=== PATIENT | female | born 1985 | race American Indian/Alaskan Native ===

== ENCOUNTER 2016-11-28 13:45 | Emergency (ER) | payer BC ==
[2016-11-28] MEDS ORDERED: Albuterol-Ipratrop 3 mg / 0.5 (3 ml) UD IH STA (14:24)
[2016-11-28] MEDS ORDERED: Albuterol 0.083% Inhal Sol (2.5 mg/3 mL) UD ONE (14:29)
--- NOTE | 2016-11-28 14:59 | C.PDOC ---
History Of Present Illness 31 year old female, with history of seasonal allergies, presents to the ED for evaluation of productive cough which began 1 week ago. Patient reports her cough was initially productive of clear sputum, but has worsened and progressed to production of yellow sputum over the past 4 days. Patient reports her "breathing feels constricted." Patient took 40mg and 30mg of Prednisone yesterday and today, respectively. Patient has also been taking Albuterol with transient relief. She denies fever, chills, chest pain. Time Seen by Provider: 11/28/16 14:06 Chief Complaint (Nursing): Shortness Of Breath History Per: Patient History/Exam Limitations: no limitations Onset/Duration Of Symptoms: Days (1 week ) Current Symptoms Are (Timing): Worse Current Respiratory Medications: Albuterol, Prednisone Associated Symptoms: Productive Cough. denies: Fever, Chills Additional History Per: Patient Past Medical History Reviewed: Historical Data, Nursing Documentation, Vital Signs Vital Signs: Last Vital Signs Temp 98 F 11/28/16 13:52 Pulse 106 H 11/28/16 15:01 Resp 22 11/28/16 15:01 BP 125/88 11/28/16 15:01 Pulse Ox 99 11/28/16 15:07 - Medical History PMH: Anemia, Gastritis, Hyperlipidemia Comment Only: Asthma (seasonal allergy) Surgical History: No Surg Hx - [facility] Procedures INJECT/INFUSE NEC (02/10/14) Family History: States: Unknown Family Hx - Social History Hx Tobacco Use: No Hx Alcohol Use: No Hx Substance Use: No - Immunization History Hx Tetanus Toxoid Vaccination: Yes Hx Influenza Vaccination: No Hx Pneumococcal Vaccination: No Review Of Systems Constitutional: Negative for: Fever, Chills Physical Exam - Physical Exam Additional Physical Exam Comments: Constitutional: No acute distress. Head: Normocephalic. Atraumatic. Eyes: PERRL. ENT: Moist mucous membranes. Neck: Supple. Cardiovascular: Regular rate. Radial pulse 2+ bilaterally. Chest: No tenderness. Respiratory: Diffuse wheezing. GI: Soft. Nontender. Nondistended. Back: No CVA tenderness. Musculoskeletal: No tenderness or swelling of extremities. Skin: No rash. Neurologic: Alert, no focal deficit. ED Course And Treatment O2 Sat by Pulse Oximetry: 99 Medical Decision Making Medical Decision Making: Impression: 31 y/o female with cough Plan: * CXR * Albuterol INH * Toradol IM * reassess and disposition Progress: CXR ordered and reviewed. Albuterol INH and Toradol IM administered. Disposition - Disposition Disposition: HOME/ ROUTINE Disposition Time: 16:02 Condition: STABLE Prescriptions: Azithromycin [Zithromax] 2 tab PO DAILY #6 tab Instructions: Upper Respiratory Infection (ED), Asthma (ED) Forms: [employer] (Tamazight) - Clinical Impression Clinical Impression: URI (upper respiratory infection), Asthma exacerbation - Scribe Statement The provider has reviewed the documentation as recorded by the Scribe (Jaclyn Ta) Provider Attestation: All medical record entries made by the Scribe were at my direction and personally dictated by me. I have reviewed the chart and agree that the record accurately reflects my personal performance of the history, physical exam, medical decision making, and the department course for this patient. I have also personally directed, reviewed, and agree with the discharge instructions and disposition.
[2016-11-28 15:01] VITALS: BP 125/88; PULSE 106; RESP 22
[2016-11-28 15:02] VITALS: O2SAT 99
[2016-11-28 16:13] VITALS: TEMP 98.4
--- NOTE | 2016-11-28 16:19 | RAD ---
HISTORY: cough COMPARISON: No prior. TECHNIQUE: Chest PA and lateral FINDINGS: LUNGS: Poor inspiration with low lung volumes, mild crowded bronchovascular markings and mild bibasilar atelectasis. PLEURA: No significant pleural effusion identified. No pneumothorax apparent. CARDIOVASCULAR: Normal. OSSEOUS STRUCTURES: No significant abnormalities. VISUALIZED UPPER ABDOMEN: Normal. OTHER FINDINGS: None. IMPRESSION: Poor inspiration with low lung volumes, mild crowded bronchovascular markings and mild bibasilar atelectasis.
== END 2016-11-28 16:13 | disposition home or self-care (01) ==
LOC: C.ER 13:45
DX: J06.9 Acute upper respiratory infection, unspecified (principal); J45.901 Unspecified asthma with (acute) exacerbation
CPT/HCPCS: 71020; 96372; 99284; J1885

== ENCOUNTER 2017-06-07 11:48 | Emergency (ER) | payer BC ==
[2017-06-07 11:48] VITALS: BMI 45.1
--- NOTE | 2017-06-07 12:39 | C.PDOC ---
History Of Present Illness 31 Y/O FEMALE PRESENTS TO ED WITH C/O RLQ PAIN SINCE 0700. SUDDEN ONSET WHILE ON TOILET SHARP RLQ W OCC RADIATION RIGHT FLANK. PATIENT STATES SHE CRAWLED TO BED AND PASSED OUT IN BED AWOKE @ 1000 WITH PERSISTENT SYMPTOMS. SYMPTOMS IMPROVE IF LAYS ON L SIDE AND ADMITS TO NAUSEA NO FEVER. PSH NEG/ LMP 1 WEEK. HO PRIOR PYELO EXAM MOD DIST NONTOXIC ABD +RLQ TEND OBESE SOFT NO R/G REMAINDER NEG MDM APPY VS TORSION VS CYST VS RENAL COLIC RO ECTOPIC Time Seen by Provider: 06/07/17 12:16 Chief Complaint (Nursing): Abdominal Pain History Per: Patient History/Exam Limitations: no limitations Onset/Duration Of Symptoms: Days Current Symptoms Are (Timing): Still Present Location Of Pain/Discomfort: RLQ Radiation Of Pain To:: Flank Quality Of Discomfort: Sharp Past Medical History Reviewed: Historical Data, Nursing Documentation, Vital Signs Vital Signs: Last Vital Signs Temp 98.1 F 06/07/17 15:54 Pulse 92 H 06/07/17 15:54 Resp 18 06/07/17 15:54 BP 129/85 06/07/17 15:54 Pulse Ox 100 06/07/17 15:54 - Medical History PMH: Anemia, Gastritis, Hyperlipidemia Comment Only: Asthma (seasonal allergy) Surgical History: No Surg Hx - [facility] Procedures INJECT/INFUSE NEC (02/10/14) Family History: States: No Known Family Hx - Social History Hx Tobacco Use: No Hx Alcohol Use: No Hx Substance Use: No - Immunization History Hx Tetanus Toxoid Vaccination: Yes Hx Influenza Vaccination: No Hx Pneumococcal Vaccination: No Review Of Systems Constitutional: Negative for: Fever, Chills Gastrointestinal: Positive for: Nausea, Abdominal Pain. Negative for: Vomiting , Diarrhea Physical Exam - Physical Exam Appears: Non-toxic, Other (In moderate distress) Skin: Warm, Dry, No Rash Head: Atraumatic, Normacephalic Oral Mucosa: Moist Neck: Normal ROM, Supple Cardiovascular: Rhythm Regular Respiratory: Normal Breath Sounds, No Rales, No Rhonchi, No Wheezing Gastrointestinal/Abdominal: Soft, Tenderness (RLQ), No Guarding, No Rebound Back: No CVA Tenderness Extremity: Normal ROM, Capillary Refill (<2 seconds) Neurological/Psych: Oriented x3, Normal Speech, Normal Cognition ED Course And Treatment - Laboratory Results Result Diagrams: 06/07/17 13:07 06/07/17 13:07 O2 Sat by Pulse Oximetry: 96 (RA) Pulse Ox Interpretation: Normal Progress - Re-Evaluation Re-evaluation Note: 06/07/17 15:49 STILL CO RESIDUAL ABD PAIN. NO S/S ACUTE ABD VSS. CT, US REPORTS REVIEWED. PAIN RX, REEVAL 06/07/17 16:53 IMPROVED MOBILITY WILL DC - Data Reviewed Data Reviewed: Lab, Diagnostic imaging, Old records Medical Decision Making Medical Decision Making: Impression: APPY VS TORSION VS CYST VS RENAL COLIC RO ECTOPIC Disposition Counseled Patient/Family Regarding: Studies Performed, Diagnosis, Need For Followup, Rx Given - Disposition Referrals: YOUR,OBGYN [Other] Disposition: HOME/ ROUTINE Disposition Time: 16:53 Condition: IMPROVED Prescriptions: Ibuprofen [Motrin] 600 mg PO Q6 #30 tab Ondansetron [Zofran Odt] 4 mg PO TID PRN #9 odt PRN Reason: Nausea/Vomiting oxyCODONE/Acetaminophen [Percocet 5/325 mg Tab] 1 ea PO QID #8 tab Instructions: Acute Pelvic Pain (DC) Forms: [employer] (Yakut), Work Excuse - Clinical Impression Clinical Impression: Bilateral dermoid cysts of ovaries, Abdominal pain - Scribe Statement The provider has reviewed the documentation as recorded by the Kimberibtiffanie Devine All medical record entries made by the Kimberibtiffanie were at my direction and personally dictated by me. I have reviewed the chart and agree that the record accurately reflects my personal performance of the history, physical exam, medical decision making, and the department course for this patient. I have also personally directed, reviewed, and agree with the discharge instructions and disposition.
[2017-06-07] MEDS ORDERED: SODIUM CHLORIDE 0.9% IV STA (12:40)
[2017-06-07] MEDS ORDERED: Sodium Chloride 0.9% 1,000 ML IV STA (12:40)
[2017-06-07] MEDS ORDERED: LIDOCAINE IV STA (12:40)
[2017-06-07 12:49] LABS: SQUAMOUS EPITHIAL 2 /hpf (0-5); URINE BACTERIA RARE (<OCC); URINE BILIRUBIN NEGATIVE (NEGATIVE); URINE BLOOD NEGATIVE (NEGATIVE); URINE CLARITY Clear (Clear); URINE COLOR Red (YELLOW); URINE GLUCOSE (UA) NORMAL (Normal); URINE LEUKOCYTE ESTERASE TRACE Leu/uL (Negative); URINE PROTEIN NEGATIVE (NEGATIVE); URINE UROBILINOGEN NORMAL mg/dL (0.2-1.0)
[2017-06-07] MEDS ORDERED: Sodium Chloride 0.9% 1,000 ML ONE (13:07)
[2017-06-07 13:15] LABS: BASO # 0.1 K/uL (0.0-0.2); BASO % 0.7 % (0.0-2.0); EOS # 0.1 K/uL (0.0-0.7); EOS % 0.4 % (0.0-4.0); HEMOGLOBIN 11.8 g/dL (11.0-16.0); LYMPH # 2.4 K/uL (1.0-4.3); MEAN CELL VOLUME 81.7 fL (81.0-99.0); MEAN CORPUSCULAR HEMOGLOBIN 27.2 pg (27.0-31.0); MEAN CORPUSCULAR HGB CONC 33.3 g/dL (33.0-37.0); MEAN PLATELET VOLUME 9.3 fL (7.2-11.7); MONO # 0.8 K/uL (0.0-0.8); MONO % 5.5 % (0.0-10.0); NEUT # 10.8 K/uL (1.8-7.0); NEUT % 76.4 % (50.0-75.0); NRBC % 0.1 % (0.0-2.0); RBC 4.35 Mil/uL (3.80-5.20); RED CELL DISTRIBUTION WIDTH 15.8 % (11.5-14.5); WHITE BLOOD COUNT 14.1 K/uL (4.8-10.8)
[2017-06-07 13:28] LABS: ALBUMIN 4.2 g/dL (3.5-5.0); ALT/SGPT 17 U/L (9-52); AST/SGOT 21 U/L (14-36); BLOOD UREA NITROGEN 13 mg/dL (7-17); CALCIUM 9.3 mg/dl (8.6-10.4); GFR AFRICAN-AMERICAN > 60; GFR NON-AFRICAN AMERICAN > 60; LIPASE 60 U/L (23-300)
[2017-06-07] MEDS ORDERED: Iohexol 240 (50 ml) IVP ONE (14:00)
[2017-06-07] MEDS ORDERED: Iohexol 240 (50 ml) ONE (14:13)
--- NOTE | 2017-06-07 15:28 | US ---
HISTORY: Right-sided pelvic pain. Menstrual status: LMP 05/30/2017. COMPARISON: June 07, 2017. CT abdomen and pelvis TECHNIQUE: Transabdominal only. Real-time technique with 2D, duplex and color Doppler. Patient refused the transvaginal component FINDINGS: UTERUS: Measures 3.8 x 4 x 8.9 cm. Normal in size and appearance. No fibroid or other mass lesion seen. ENDOMETRIUM: Measures 9.7 mm in diameter. No ultrasound findings to suggest gestational sac, fluid, debris, mass or polyp or other pathologic process within the endometrium. CERVIX: No cervical abnormality identified. Closed cervix 2.3 cm. RIGHT OVARY: Measures 6.3 x 7.9 x 9.1 cm. Solid mass 5.4 x 6 x 6.3 cm. The overall appearance and feeding comparison with recent CT scan indicates right adnexal dermoid Normal flow. LEFT OVARY: Measures 3.7 x 4.1 x 5.9 cm. Solid mass 3.1 x 4 x 5.1 cm. The overall appearance viewed in conjunction with the concurrent CT scan indicative of left adnexal dermoid. Normal flow. FREE FLUID: No significant free fluid noted. OTHER FINDINGS: None. IMPRESSION: Unremarkable uterus and endometrial echo complex. Bilateral adnexal masses with both CT and ultrasound characteristics that dermoids.
--- NOTE | 2017-06-07 15:38 | CT ---
PROCEDURE: CT Abdomen and Pelvis without intravenous contrast HISTORY: abd pain RLQ RO APPY VS STONE COMPARISON: None. TECHNIQUE: Without contrast.. Contrast Dose: 0 Radiation dose: Total exam DLP = Total exam DLP = 1174.44 mGy-cm. This CT exam was performed using one or more of the following dose reduction techniques: Automated exposure control, adjustment of the mA and/or kV according to patient size, and/or use of iterative reconstruction technique. FINDINGS: LOWER THORAX: Unremarkable. LIVER: Unremarkable. No gross lesion or ductal dilatation. GALLBLADDER AND BILE DUCTS: Unremarkable. PANCREAS: Unremarkable. No gross lesion or ductal dilatation. SPLEEN: Unremarkable. ADRENALS: Unremarkable. No mass. KIDNEYS AND URETERS: 4 mm nonobstructing right lower pole renal calculus. No left renal calculus. No hydronephrosis. No renal mass. VASCULATURE: Unremarkable. No aortic aneurysm. BOWEL: Mild sigmoid diverticulosis. No evidence of diverticulitis. No bowel obstruction. No other abnormal bowel loops. APPENDIX: Unremarkable. Normal appendix. PERITONEUM: Unremarkable. No free fluid. No free air. LYMPH NODES: No retroperitoneal or pelvic lymphadenopathy. There are numerous shotty subcentimeter lymph nodes in the small bowel mesenteric and medial to the cecum. This reflects nonspecific mesenteric adenitis. BLADDER: Poorly distended. Grossly unremarkable. REPRODUCTIVE: Normal uterus. Multiple bilateral ovarian dermoid tumors. On the right side, there are dermoid tumors measuring 5.1 cm, 1.3 cm and 2.5 cm. On the left side, there are dermoid tumors measuring 2.5 cm and 2.0 cm. All of these masses demonstrate attenuation consistent with fatty tissue. There is nodular calcifications seen in association with several of these masses. BONES: No acute fracture. OTHER FINDINGS: None. IMPRESSION: Multiple bilateral ovarian dermoid tumors, largest 5.1 cm. In the appropriate clinical circumstance, the possibility of ovarian torsion should be considered. However, there is no other evidence to suggest ovarian torsion. Findings consistent with nonspecific mesenteric adenitis. 4 mm nonobstructing right renal calculus. No other significant abnormality.
[2017-06-07] MEDS ORDERED: Oxycodone/Acetaminophen 5/325 mg Tab PO STA (15:46)
[2017-06-07] MEDS ORDERED: Oxycodone/Acetaminophen 5/325 mg Tab ONE (15:52)
[2017-06-07 15:56] VITALS: BP 129/85; PULSE 92; RESP 18; TEMP 98.1
[2017-06-07 16:55] VITALS: O2SAT 96
== END 2017-06-07 17:05 | disposition home or self-care (01) ==
LOC: C.ER 11:48
DX: D27.1 Benign neoplasm of left ovary (principal); D27.0 Benign neoplasm of right ovary; R10.31 Right lower quadrant pain
CPT/HCPCS: 74176; 76856; 80053; 81001; 83690; 85025; 96361; 96374; 96375; 99285; J1885; J2001; J7040; Q9966

== ENCOUNTER 2017-06-14 12:17 | Inpatient (IN) | payer BC ==
[2017-06-13 10:22] VITALS: BMI 46.7
[2017-06-14] MEDS ORDERED: Propofol 10 mg/ml Inj (20 ML) ONE (13:52)
[2017-06-14] MEDS ORDERED: Midazolam 2 MG/2 ML VIAL ONE (13:52)
[2017-06-14] MEDS ORDERED: Rocuronium 10 mg/ml (5 ml) ONE (14:08)
[2017-06-14] MEDS ORDERED: Albuterol HFA 90 mcg/actuation (8 g) ONE (14:12)
[2017-06-14] MEDS ORDERED: Clindamycin 600mg/50ml NS 600 MG/50 ML BAG IVPB ONE (14:16)
[2017-06-14] MEDS ORDERED: ePHEDrine 50 mg/ml Inj ONE (15:10)
[2017-06-14] MEDS ORDERED: Clindamycin 600mg/50ml D5W 600 MG/50 ML VIAL IVPB ONE (15:24)
[2017-06-14] MEDS ORDERED: Oxycodone/Acetaminophen 5/325 mg Tab PO PRN ×2 (15:24)
[2017-06-14] MEDS ORDERED: Neostigmine Methylsulfate 3mg/3ml Syringe IV ONE (15:30)
[2017-06-14] MEDS ORDERED: Lactated Ringer's 1,000 ML IV SCH (15:30)
[2017-06-14] MEDS: HYDROmorphone 0.5 mg/0.5 ml ISec IVP PRN ×5 (15:38→22:48)
--- NOTE | 2017-06-14 15:50 | PCM.OP ---
Operative Report - Operative Report Date of Surgery/Procedure: 06/14/17 Time of Surgery/Procedure: 14:25 Surgeon: Dr. Kris White Web Support Engineer: Dr. Garnett Anesthesia/Sedation: General, Endo Pre-Operative Diagnosis: Bilateral Ovarian Cysts Post-Operative Diagnosis: Same, Dermoids Indication for Surgery: Ovarian Cysts Operative Findings: Right Ovarian Cyst, 9cm. Left Ovarian Cyst, 6cm Procedure/Operation Description: Explore Laparotomy, Bilateral Oophocystectomies Estimated Blood Loss: 50 ml Complications: None Discharge & Condition: Satisfactory
[2017-06-14] MEDS: Albuterol 0.083% Inhal Sol (2.5 mg/3 mL) UD INH PRN (15:53)
[2017-06-14 18:46] VITALS: RESP 20
[2017-06-14 19:36] LABS: MEAN CELL VOLUME 81.7 fL (81.0-99.0); MEAN CORPUSCULAR HEMOGLOBIN 27.1 pg (27.0-31.0); MEAN CORPUSCULAR HGB CONC 33.2 g/dL (33.0-37.0); MEAN PLATELET VOLUME 8.9 fL (7.2-11.7); RBC 4.41 Mil/uL (3.80-5.20); RED CELL DISTRIBUTION WIDTH 15.8 % (11.5-14.5)
[2017-06-14 19:49] LABS: WHITE BLOOD COUNT 18.8 K/uL (4.8-10.8)
[2017-06-14] MEDS: Oxycodone/Acetaminophen 5/325 mg Tab PO PRN (20:44)
[2017-06-14] MEDS ORDERED: HYDROmorphone 0.5 mg/0.5 ml ISec ONE (22:42)
[2017-06-14] MEDS ORDERED: Clindamycin 600mg/50ml D5W 600 MG/50 ML VIAL IVPB SCH (23:00)
[2017-06-15] MEDS: Clindamycin 600mg/50ml NS 600 MG/50 ML BAG IVPB SCH ×2 (00:30→08:31)
[2017-06-15] MEDS ORDERED: HYDROmorphone 0.5 mg/0.5 ml ISec ONE ×2 (02:49→07:06)
[2017-06-15] MEDS: HYDROmorphone 0.5 mg/0.5 ml ISec IVP PRN ×4 (02:50→22:58)
[2017-06-15] MEDS: Pantoprazole 40 mg EC Tab PO SCH (09:33)
[2017-06-15] MEDS: Simethicone 80 mg Chewtab PO SCH ×4 (09:34→21:40)
[2017-06-15] MEDS: Oxycodone/Acetaminophen 5/325 mg Tab PO PRN ×2 (12:49→21:36)
[2017-06-15] MEDS: Magnesium Hydroxide Susp 30 ml UD PO PRN (14:06)
[2017-06-16] MEDS: Pantoprazole 40 mg EC Tab PO SCH (10:21)
[2017-06-16] MEDS: Magnesium Hydroxide Susp 30 ml UD PO PRN (10:25)
[2017-06-16] MEDS: Simethicone 80 mg Chewtab PO SCH ×4 (10:28→22:45)
--- NOTE | 2017-06-16 11:56 | CP.PCM.PN ---
Subjective - Date & Time of Evaluation Date of Evaluation: 06/16/17 Time of Evaluation: 11:00 - Subjective Subjective: POD #2 C/O Lower abdominal pain. No BM Wound Clean Sl menstrual bleeding P: Dulcolax Supp Clear liquid diet Home in AM if stable Objective - Vital Signs/Intake and Output Vital Signs (last 24 hours): Temp Pulse Resp BP Pulse Ox 98.7 F 98 H 20 113/75 98 06/16/17 08:00 06/16/17 08:00 06/16/17 08:00 06/16/17 08:00 06/16/17 08:00 - Medications Medications: Current Medications Albuterol Sulfate (Albuterol 0.083% Inhal [place] (2.5 Mg/3 Ml) Ud) 2.5 mg INH RQ6 PRN PRN Reason: Cough and congestion Last Admin: 06/14/17 15:53 Dose: 2.5 mg Diphenhydramine HCl (Benadryl) 25 mg PO Q6 PRN Last Admin: 06/15/17 11:24 Dose: 25 mg Hydromorphone HCl (Dilaudid) 0.5 mg IVP Q4H PRN PRN Reason: severe pain Last Admin: 06/15/17 22:58 Dose: 0.5 mg Lactated Ringer's (Lactated Ringer's) 1,000 mls @ 125 mls/hr IV .Q8H [facility] Last Admin: 06/14/17 17:30 Dose: 0 mls Magnesium Hydroxide (Milk Of Magnesia) 30 ml PO BID PRN PRN Reason: Constipation Last Admin: 06/16/17 10:25 Dose: 30 ml Montelukast Sodium (Singulair) 10 mg PO HS [facility] Last Admin: 06/14/17 22:48 Dose: 10 mg Ondansetron HCl (Zofran Inj) 4 mg IVP ONCE PRN PRN Reason: Nausea/Vomiting Oxycodone/Acetaminophen (Percocet 5/325 Mg Tab) 1 tab PO Q4H PRN PRN Reason: Pain, moderate (4-7) Stop: 06/17/17 15:25 Last Admin: 06/14/17 18:05 Dose: 1 tab Oxycodone/Acetaminophen (Percocet 5/325 Mg Tab) 1 tab PO Q4 PRN PRN Reason: Pain, moderate (4-7) Stop: 06/17/17 15:25 Oxycodone/Acetaminophen (Percocet 5/325 Mg Tab) 2 tab PO Q4H PRN PRN Reason: Pain, severe (8-10) Stop: 06/17/17 19:40 Last Admin: 06/15/17 21:36 Dose: 2 tab Pantoprazole Sodium (Protonix Ec Tab) 40 mg PO DAILY [facility] Last Admin: 06/16/17 10:21 Dose: 40 mg Simethicone (Mylicon Chew Tab) 160 mg PO QID [facility] Last Admin: 06/16/17 10:28 Dose: 160 mg - Labs Labs: 06/14/17 19:30
[2017-06-16] MEDS: Hydrocodone/Acetaminophen 5 mg /300 mg Tab PO PRN ×2 (13:54→18:17)
[2017-06-16] MEDS: Albuterol 0.083% Inhal Sol (2.5 mg/3 mL) UD INH PRN (18:30)
[2017-06-17] MEDS ORDERED: HYDROmorphone 0.5 mg/0.5 ml ISec ONE (00:05)
[2017-06-17] MEDS: HYDROmorphone 0.5 mg/0.5 ml ISec IVP PRN (00:19)
[2017-06-17] MEDS: Hydrocodone/Acetaminophen 5 mg /300 mg Tab PO PRN (07:41)
[2017-06-17] MEDS: Albuterol 0.083% Inhal Sol (2.5 mg/3 mL) UD INH PRN (08:19)
[2017-06-17 08:40] VITALS: BP 133/90; PULSE 107; TEMP 97.1; O2SAT 99
[2017-06-17] MEDS: Magnesium Hydroxide Susp 30 ml UD PO PRN (10:52)
[2017-06-17] MEDS: Pantoprazole 40 mg EC Tab PO SCH (10:52)
[2017-06-17] MEDS: Simethicone 80 mg Chewtab PO SCH (10:56)
--- NOTE | 2017-06-23 06:28 | OP ---
PROCEDURE DATE: 06/14/2017 NATURE OF OPERATION: Exploratory laparotomy and bilateral oophorocystectomy. ATTENDING SURGEON: Mamadou White MD OPERATING SURGEON: Mamadou White MD PAPER TESTING SUPERVISOR: Dr. Garnett. TYPE OF ANESTHESIA: General. BARREL LINER: Dr. Desir. PREOPERATIVE DIAGNOSIS: Bilateral ovarian cyst. POSTOPERATIVE DIAGNOSES: Bilateral ovarian cyst, dermoid cyst. ESTIMATED BLOOD LOSS: 50 mL. PROCEDURE: The patient was placed in supine position. The abdomen was prepped and draped for a midline incision. A vertical midline incision was made between the symphysis pubis and the umbilicus and was carried down to rectus fascia. The fascia was cleaned and incised the length of the incision. The recti were retracted laterally. The transversalis fascia identified and mobilized superiorly. The peritoneum was then incised the length of the incision. There was a large 9 cm right ovarian cyst noted. The right ovarian cyst was dissected and bluntly lysis of the adhesion was done. The incision was made near the normal ovary and the cyst was cut. The edge of the ovary and the dermoid cyst was noticed, and the edge of the ovary was grasped with the Allis clamps and sutured continuous interlocking with the 0 chromic. The same procedure was done on the left ovarian cyst, also was a dermoid cyst. After hemostasis has been obtained, the pelvic cavity was cleaned. Cavity was washed with normal saline and hemostasis was satisfactory. After placing the Interceed on the ovarian incisions, the closure was started. Lap and sponge count were reported as correct. The abdomen was closed in layers. Peritoneum continuous suture of chromic #0 catgut on an atraumatic needle, fascia running interlocking sutures of 0 Vicryl, and subcutaneous tissue was closed in two layers of #2-0 plain catgut and the skin was closed with the tiki. The patient tolerated the procedure well and sent to the recovery room in satisfactory condition. Mamadou White MD
== END 2017-06-17 14:00 | disposition home or self-care (01) | DRG 738 ==
LOC: C.OPSURG 12:17 → C.SDS 12:17 → C.9S 15:29 → C.4M 17:30
PROVIDERS: ADMIT Obstetrics & Gynecology Gynecology; ATTEND Obstetrics & Gynecology Gynecology
PROC: 0UB20ZZ Excision of Bilateral Ovaries, Open Approach (ICD-10-PCS; principal; 2017-06-14 13:30)
DX: D39.12 Neoplasm of uncertain behavior of left ovary (principal); D39.11 Neoplasm of uncertain behavior of right ovary; N83.12 Corpus luteum cyst of left ovary

== ENCOUNTER 2017-09-12 11:00 | Emergency (ER) | payer BC ==
[2017-09-12 11:00] VITALS: BMI 46.7
[2017-09-12 11:10] VITALS: RESP 18; TEMP 98.9
[2017-09-12 12:01] LABS: HCG,QUALITATIVE URINE NEGATIVE (NEGATIVE); SQUAMOUS EPITHIAL 3 /hpf (0-5); URINE BILIRUBIN NEGATIVE (NEGATIVE); URINE BLOOD NEGATIVE (NEGATIVE); URINE CLARITY Clear (Clear); URINE COLOR Yellow (YELLOW); URINE GLUCOSE (UA) NORMAL (Normal); URINE LEUKOCYTE ESTERASE NEG Leu/uL (Negative); URINE PROTEIN NEGATIVE (NEGATIVE); URINE UROBILINOGEN NORMAL mg/dL (0.2-1.0)
[2017-09-12] MEDS ORDERED: Sodium Chloride 0.9% 1,000 ML IV STA (12:04)
[2017-09-12] MEDS ORDERED: Barium Sulfate Susp 2.1% w/v, 2.0% w/w 450 mL Bottle PO STA (12:05)
[2017-09-12 12:36] VITALS: BP 126/78; PULSE 76; O2SAT 100
[2017-09-12] MEDS ORDERED: Sodium Chloride 0.9% 1,000 ML ONE (12:38)
[2017-09-12 12:43] LABS: BASO # 0.1 K/uL (0.0-0.2); EOS # 0.2 K/uL (0.0-0.7); EOS % 1.8 % (0.0-4.0); HEMOGLOBIN 11.4 g/dL (11.0-16.0); LYMPH # 2.7 K/uL (1.0-4.3); LYMPH % 29.6 % (20.0-40.0); MEAN CELL VOLUME 80.3 fL (81.0-99.0); MEAN CORPUSCULAR HEMOGLOBIN 26.7 pg (27.0-31.0); MEAN CORPUSCULAR HGB CONC 33.3 g/dL (33.0-37.0); MONO # 0.5 K/uL (0.0-0.8); NEUT # 5.6 K/uL (1.8-7.0); NEUT % 61.6 % (50.0-75.0); RBC 4.27 Mil/uL (3.80-5.20); WHITE BLOOD COUNT 9.1 K/uL (4.8-10.8)
[2017-09-12] MEDS ORDERED: Barium Sulfate Susp 2.1% w/v, 2.0% w/w 450 mL Bottle PO ONE (13:07)
[2017-09-12 13:13] LABS: ALB/GLOB RATIO 1.3 (1.0-2.1); ALBUMIN 4.4 g/dL (3.5-5.0); ALT/SGPT 27 U/L (9-52); AST/SGOT 28 U/L (14-36); BLOOD UREA NITROGEN 8 mg/dL (7-17); CALCIUM 9.5 mg/dl (8.6-10.4); GFR AFRICAN-AMERICAN > 60; GFR NON-AFRICAN AMERICAN > 60; LIPASE 57 U/L (23-300)
--- NOTE | 2017-09-12 14:22 | C.PDOC ---
History Of Present Illness 31-year-old female, presents to the emergency department with complaints of two day-duration of nausea and lower abdominal pain. Patient states she recently had ovarian surgery for dermoid cyst. She denies any vomiting, fever, chills, chest pain, back pain, or any other associated symptoms. No other complaints at this time. Time Seen by Provider: 09/12/17 11:27 Chief Complaint (Nursing): Abdominal Pain History Per: Patient History/Exam Limitations: no limitations Current Symptoms Are (Timing): Still Present Severity: Moderate Past Medical History Reviewed: Historical Data, Nursing Documentation, Vital Signs Vital Signs: Last Vital Signs Temp 98.9 F 09/12/17 11:07 Pulse 76 09/12/17 11:44 Resp 18 09/12/17 11:44 BP 126/78 09/12/17 11:44 Pulse Ox 100 09/12/17 14:52 - Medical History PMH: Anemia, Asthma (NEVER HOSPITALIZED), Gastritis, Hyperlipidemia Denies: Chronic Kidney Disease Surgical History: Endoscopy - [facility] Procedures EXCISION OF BILATERAL OVARIES, OPEN APPROACH (06/14/17) INJECT/INFUSE NEC (02/10/14) Family History: States: No Known Family Hx - Social History Hx Tobacco Use: No Hx Alcohol Use: No Hx Substance Use: Yes - Immunization History Hx Tetanus Toxoid Vaccination: Yes Hx Influenza Vaccination: No Hx Pneumococcal Vaccination: No Review Of Systems Except As Marked, All Systems Reviewed And Found Negative. Constitutional: Negative for: Fever, Chills Cardiovascular: Negative for: Chest Pain Respiratory: Negative for: Shortness of Breath Gastrointestinal: Positive for: Nausea, Abdominal Pain. Negative for: Vomiting Physical Exam - Physical Exam Appears: Non-toxic, No Acute Distress Skin: Normal Color, Warm, Dry, No Rash Head: Atraumatic, Normacephalic Eye(s): bilateral: Normal Inspection, PERRL, EOMI Nose: Normal Oral Mucosa: Moist Lips: Normal Appearing Neck: Normal ROM Chest: Symmetrical Cardiovascular: Rhythm Regular, No Murmur Respiratory: Normal Breath Sounds, No Accessory Muscle Use Gastrointestinal/Abdominal: Soft, Tenderness (RLQ), No Guarding, No Rebound Back: Normal Inspection Extremity: Normal ROM, No Deformity Neurological/Psych: Oriented x3, Normal Speech ED Course And Treatment - Laboratory Results Result Diagrams: 09/12/17 12:36 09/12/17 12:36 O2 Sat by Pulse Oximetry: 100 Pulse Ox Interpretation: Normal (RA) Progress Note: CT Abd/Pel, Bloodwork and UA ordered and reviewed. Patient treated with Toradol, IVF and Reglan. Patient finished drinking the contrast, but states she wants to leave AMA because she has to go to work. Against Medical Advice - AMA Patient Left Against Medical Advice: The patient declines admission to the hospital and wishes to leave the Emergency Department. This action is against my medical advice. This decision was made with informed refusal. The patient was told that admission to the hospital is necessary. Explanation of the reasons why were discussed. The risks of leaving were explained to the patient and include, but are not limited to, worsening of known or currently unknown conditions, permanent disability and from undiagnosed or untreated conditions. The patient has the capacity to make this informed decision and understands my explanation of the current medical problem and risks of leaving. The patient voluntarily accepts these risks and signed an AMA form documenting our conversation. The patient was given the opportunity to ask questions and reconsider. The patient was encouraged to return to the Emergency Department at any time for further care. Disposition - Disposition Disposition: AGAINST MEDICAL ADVICE Disposition Time: 14:39 Condition: STABLE Additional Instructions: Return to ED immediately if feel worse. Forms: [employer] (Telugu) - Clinical Impression Clinical Impression: Abdominal pain - Scribe Statement The provider has reviewed the documentation as recorded by the Scribe (Neetu Lacy) All medical record entries made by the Scribe were at my direction and personally dictated by me. I have reviewed the chart and agree that the record accurately reflects my personal performance of the history, physical exam, medical decision making, and the department course for this patient. I have also personally directed, reviewed, and agree with the discharge instructions and disposition.
== END 2017-09-12 14:49 | disposition left against medical advice (07) ==
LOC: C.ER 11:00
DX: R10.31 Right lower quadrant pain (principal)
CPT/HCPCS: 80053; 81001; 83690; 84703; 85025; 96361; 96374; 99285; J2765; J7030